=== PATIENT | male | born 1985 | race Caucasian/White ===

== ENCOUNTER 2016-10-17 10:18 | Emergency (ER) | payer MEDICAID ==
[2016-10-17] MEDS ORDERED: BUSPIRONE HYDRO10 MG PO (11:03)
[2016-10-17] MEDS ORDERED: CELEXA 20MG20 MG/TA1 PO (11:04)
[2016-10-17] MEDS ORDERED: RISPERDAL4 M1 PO (11:04)
[2016-10-17] MEDS ORDERED: BENZTROPINE1 MG PO (11:04)
[2016-10-17] MEDS ORDERED: AUGMENTIN 875-1 EAC1 PO (11:10)
[2016-10-17 11:32] VITALS: BP 128/78
== END 2016-10-17 11:32 | disposition home or self-care (01) ==
LOC: ED 10:18
DX: S61.051A Open bite of right thumb without damage to nail, initial encounter (principal); W54.0XXA Bitten by dog, initial encounter
CPT/HCPCS: 90715

== ENCOUNTER → 2019-06-06 | Outpatient (CLI) | payer MEDICAID ==
[~2019-06-06] MED LIST: AUGMENTIN 875-1 EAC1 PO; BENZTROPINE1 MG PO; BUSPIRONE HYDRO10 MG PO; CELEXA 20MG20 MG/TA1 PO; RISPERDAL4 M1 PO
== END ==
LOC: RAD 12:49
DX: M25.422 Effusion, left elbow (principal)

== ENCOUNTER 2021-03-18 18:25 | Emergency (ER) | payer MEDICAID ==
[2021-03-18] MEDS ORDERED: BACTRIM DS TAB1 EACH PO (19:27)
[2021-03-18] MEDS ORDERED: AUGMENTIN 875-1 EAC1 PO (19:27)
[2021-03-18 20:02] VITALS: BP 144/89
== END 2021-03-18 20:03 | disposition home or self-care (01) ==
LOC: ED 18:25
DX: L05.91 Pilonidal cyst without abscess (principal)